=== PATIENT | female | born 1945 | race Caucasian/White ===

== ENCOUNTER 2019-08-24 06:25 | Day surgery (SDC) | payer MEDICARE, OTHER ==
[~2019-08-24] VITALS: Ht 154.9 cm; Wt 84.4 kg
[~2019-08-24 06:25] MED LIST: ASPIRIN EC81 MG PO; CALCIUM500 M1 PO; CENTRUM SILVER1 EAC4 PO; LEVOTHYROXINE75 MCG PO; LOSARTAN POTASS50 MG PO; METFORMIN HCL1000 MG PO; METOPROLOL SUC100 MG PO; OMEPRAZOLE20 MG PO; PAROXETINE HCL20 MG PO; PREVACID15 MG PO; SIMVASTATIN20 MG PO; VITAMIN B122500 MCG PO
--- NOTE | 2019-08-24 08:21 | NUR ---
08/24/19 0821 Sheets,Ariela 0805 PT ARRIVED TO PACU WITH ORAL AIRWAY IN PLACE, VSS. PT ON 6L VIA NC AND PT NONAROUSABLE. RESP EVEN AND UNLABORED BUT SHALLOW. 0812 O2 SAT DECREASED TO 88%, PT WOKE TO TACTILE STIMULI AND ORAL AIRWAY REMOVED. RN ENCOURAGES DEEP BREATHING AND IS REORIENTED TO PACU. 0815 PT WAKES AND ASKED QUESTIONS, RN ANSWERS QUESTIONS AND PT FALLS BACK TO SLEEP. 0818 PT WAKES AND IS TALKING TO RN, PT EDUCATION GIVEN ON DEEP BREATHING. 0819 O2 DECREASED TO 3L, O2 SAT 98%.
--- NOTE | 2019-08-24 08:23 | NUR ---
PT ALERT, ORIENTED AND HERE FOR ROUTINE SCOPE. PT MENTIONED THAT SHE HAS FAMILY HISTORY WITH COLON ISSUES, AND EXPRESSED FRUSTRATION WITH FAMILY THAT REFUSE TO FOLLOW HER EXAMPLE. PT IS PLEASANT, ANSWERED ALL QUESTONS. GAVE BLESSING
--- NOTE | 2019-08-24 10:15 | OR ---
[facility] [address], [place] [address] Signed DATE OF OPERATION: 08/24/2019 SURGEON: Delano Lu MD PREOPERATIVE DIAGNOSES: 1. Maternal grandfather with colon cancer in his 50s. 2. Mother with colon cancer in her 80s. 3. Personal history of colonic polyps in 2013. POSTOPERATIVE DIAGNOSES: 1. A 5 mm polyp in cecum. 2. A 12 mm sessile polyp in mid right colon (snare/tattoo). 3. A 5 mm polyp at 10 cm. 4. Minimal to moderate internal hemorrhoids with skin tags. PROCEDURES: Colonoscopy, snare polypectomy, hot biopsy and injection of tattoo. ESTIMATED BLOOD LOSS: None. INDICATIONS: Sarah is a 74-year-old female, who comes for a followup colonoscopy. Her maternal grandfather had colon cancer in his 50s. Her mother had colon cancer in the 80s and at age 84 from the colon cancer. Sarah had several adenomas polyps removed in 2013. She and her are retired and they travel back and forth to [place] in the winter. She has finally made our way back for followup colonoscopy. I reminded her that she should stay on the 5-year plan. She has no lower GI complaints. In addition, we were not able to get her asleep with our Versed and fentanyl back in 2013. She also has a very wide short heavy neck and a heavy jaw line. Consequently, we had an anesthesia provider help us in 2013 and we made those arrangements on this occasion as well. It proved to be a ross decision. She required quite a bit of propofol to get through the sigmoid colon. I had reviewed the nature of colonoscopy with Sarah. She understands the nature of the test along with the risks including, but not limited to gas bloating, crampy abdominal pain, bleeding, perforation requiring surgery, and missed diagnosis. She had expressed understanding and wished to proceed. DESCRIPTION OF PROCEDURE: Sarah was taken into our endoscopy suite and placed in the left lateral decubitus position. She was given IV sedation with propofol per our nurse television program director. A digital Electronically Signed By: DELANO LU MD 08/24/19 1015 PATIENT NAME: SARAH BANERJEE OPERATIVE REPORT DATE OF : 47 REPORT #: [id number] PHYSICIAN: DELANO LU MD PCP: NAGELY ALFONSO REPORT IS CONFIDENTIAL AND NOT TO BE RELEASED WITHOUT AUTHORIZATION [facility] [address], [place] [address] Signed rectal exam was performed and this was unremarkable. The adult colonoscope was introduced and advanced under direct visualization of camera. She has a moderately difficult sigmoid colon. It took moderate pressure to get the scope through. Fortunately, her prep was good. Even then the scope was dragging in the sigmoid colon throughout her entire procedure. We admitted around to the cecum with additional propofol and abdominal compression. We could easily see the appendiceal orifice and the ileocecal valve. She had a polyp in the base of the cecum, easily removed with the help of a hot biopsy forceps. The scope was slowly withdrawn. She has a multilobulated sessile polyp in the mid right colon. We removed that with two bites of the snare and a couple bites of the hot biopsy forceps. We then injected a tattoo along that area to gokul its location. The scope was withdrawn further and we found a polyp in the rectum at 10 cm. It was easily removed with a hot biopsy forceps. There was no diverticulosis that we could see. Upon retroflexion of scope, she does have minimal to moderate internal hemorrhoids along with associated skin tags. After this, the gas was suctioned out and the colonoscope removed. Sarah tolerated the procedure quite well. RECOMMENDATIONS: I will see Sarah back in my office in 7 to 14 days to review her pathology results. She needs to stay on the 5-year rotation at a minimum. She will always need propofol for her endoscopies. MD ENMA Tom/SURINDERL /[id number] cc: MD Angely Tom PA Copies: DELANO LU MD, LINDA PA ~ Electronically Signed By: DELANO LU MD 08/24/19 1015 PATIENT NAME: SARAH BANERJEE JOSE M OPERATIVE REPORT DATE OF : 47 REPORT #: [id number] PHYSICIAN: DELANO LU MD PCP: ANGELY ALFOSNO REPORT IS CONFIDENTIAL AND NOT TO BE RELEASED WITHOUT AUTHORIZATION
--- NOTE | 2019-08-27 13:58 | PATH ---
[facility] [address], [place] [address] Signed SPECIMEN(S): A COLON POLYP AT 10 CM SPECIMEN(S): B MID RIGHT COLON POLYP SPECIMEN(S): C CECAL POLYP SPECIMEN SOURCE: A. COLON POLYP AT 10 CM B. MID RIGHT COLON POLYP C. CECAL POLYP CLINICAL HISTORY: Colon and rectal polyps, internal hemorrhoids. MICROSCOPIC DESCRIPTION: Histologic sections of all submitted blocks are examined by light microscopy. These findings, together with the gross examination, support the pathologic diagnosis. FINAL PATHOLOGIC DIAGNOSIS: A. Colon polyp at 10 cm: - Tubular adenoma (one fragment). B. Mid right colon polyp: - Tubular adenoma (multiple fragments). C. Cecal polyp: - Tubular adenoma (two fragments). JVR:[facility]:C2NR GROSS DESCRIPTION: Three specimens are received in three containers, labeled "CH." A. The specimen, labeled "CH, 1," and designated on the requisition "colon polyp at 10 cm," is received in formalin and consists of one sheridan soft tissue polypoid fragment that measures 0.3 cm in greatest dimension. The specimen is entirely submitted in cassette (A1). B. The specimen, labeled "CH, 2," and designated on the requisition "mid right colon polyp," is received in formalin and consists of multiple sheridan soft tissue polypoid fragments that measure 2.0 x 1.6 x 0.6 cm in aggregate. The specimen is filtered and entirely submitted in cassette (B1). C. The specimen, labeled "CH, 3," and designated on the requisition "cecal polyp," is received in formalin and consists of two sheridan soft tissue polypoid fragments that measure 0.3 cm in greatest dimension. The specimen is entirely submitted in cassette (C1). AT (under the direct supervision of a pathologist) PATIENT NAME: MIKE BANERJEE PATHOLOGY DATE OF : 47 REPORT #: [id number] PHYSICIAN: YUAN PATHOLOGY PCP: KARYNA ALFONSO REPORT IS CONFIDENTIAL AND NOT TO BE RELEASED WITHOUT AUTHORIZATION [facility] [address], [place] [address] Signed The Gross Description was prepared using a voice recognition system. The report was reviewed for accuracy; however, sound-alike word errors, addition and/or deletions may occur. If there is any question about this report, please contact Client Services. PERFORMING LABORATORY: The technical component was performed by [employer] [employer], [address] [place] [address] (Qa Auditor: Bell Wilson MD; CLIA# [id number]). Professional interpretation [place] [address] (Qa Auditor: Agus Dodson M.D.). Diagnostician: Agus Dodson MD Pathologist Electronically Signed 08/27/2019 Copies: ~ PATIENT NAME: MIKE BANERJEE PATHOLOGY DATE OF : 47 REPORT #: [id number] PHYSICIAN: YUAN TAVARES PCP: KARYNA ALFONSO REPORT IS CONFIDENTIAL AND NOT TO BE RELEASED WITHOUT AUTHORIZATION
== END 2019-08-24 08:49 | disposition home or self-care (01) ==
LOC: DS 06:25 → OPS 06:25 → DS 07:45 → OPS 07:45
PROVIDERS: Colon & Rectal Surgery
PROC: 0DBP8ZZ Excision of Rectum, Via Natural or Artificial Opening Endoscopic (ICD-10-PCS; 2019-08-24)
PROC: 0DBH8ZZ Excision of Cecum, Via Natural or Artificial Opening Endoscopic (ICD-10-PCS; 2019-08-24)
PROC: 0DBK8ZZ Excision of Ascending Colon, Via Natural or Artificial Opening Endoscopic (ICD-10-PCS; principal; 2019-08-24 06:45)
DX: Z12.11 Encounter for screening for malignant neoplasm of colon (principal); D12.0 Benign neoplasm of cecum; D12.2 Benign neoplasm of ascending colon; D12.8 Benign neoplasm of rectum; K64.8 Other hemorrhoids; K64.4 Residual hemorrhoidal skin tags; I10 Essential (primary) hypertension; E78.5 Hyperlipidemia, unspecified; E11.9 Type 2 diabetes mellitus without complications; E03.9 Hypothyroidism, unspecified; F32.9 Major depressive disorder, single episode, unspecified; F41.9 Anxiety disorder, unspecified; Z80.0 Family history of malignant neoplasm of digestive organs; Z86.010 Personal history of colon polyps; Z79.82 Long term (current) use of aspirin; Z79.84 Long term (current) use of oral hypoglycemic drugs; Z79.899 Other long term (current) drug therapy
CPT/HCPCS: J2370; J2704

== ENCOUNTER 2022-09-15 06:50 | Day surgery (SDC) | payer MEDICARE, OTHER ==
[2022-09-13 11:42] VITALS: BP 141/78
[~2022-09-15] VITALS: Ht 154.9 cm; Wt 81.8 kg
[2022-09-15 07:22] VITALS: BP 126/77
[2022-09-15 09:38] VITALS: BP 132/73
--- NOTE | 2022-09-15 09:41 | NUR ---
09/15/22 0941 Yoly Springer- 0839 PT ARRIVED TO PACU, LEFT LATERAL POSITION, RESPONSIVE TO VOICE. NSR ON MONITOR, O2 IN PLACE. ABD SOFT, DENIES PAIN, AND NAUSEA. 09- PT MOVED TO ROOM AIR AT TIME, MAINTAINING SATS AT 95%. 909- PT AWAKE, HEAD OF BED ELEVATED, DENIES PAIN AND NAUSEA. PT DECLINES FLUIDS AT THIS TIME. 926- PT ABLE TO STAND AT BEDSIDE, NO DIZZINESS. PT TO GET DRESSED AND RIDE CALLED.
--- NOTE | 2022-09-15 09:47 | OR ---
[facility] [address], [place] [address] Signed DATE OF OPERATION: 09/15/2022 SURGEON: Delano Lu MD PREOPERATIVE DIAGNOSES: 1. Maternal grandfather with colon cancer. 2. Mother with colon cancer, age 80. 3. Personal history of colonic polyps, age 68. 4. Chronic diarrhea. 5. Nocturnal fecal leakage. 6. Tattoo mid right colon. 7. Internal hemorrhoids with skin tags. POSTOPERATIVE DIAGNOSES: 1. Tortuous angulated sigmoid colon. 2. Moderate internal hemorrhoids with skin tags. 3. Tattoo, mid right colon. PROCEDURE: Colonoscopy without biopsy. ESTIMATED BLOOD LOSS: None. INDICATIONS: Sarah is a 77-year-old female asked to see me for a followup colonoscopy. We know her maternal grandfather had colon cancer. Her mother had colon cancer at age 80. She from the colon cancer at age 84. Sarah has had multiple colonic polyps removed starting at age 68. She is known to have chronic diarrhea. More recently, she has had some nocturnal leakage of stool for about one time a month. We have left a tattoo in her mid right colon. We know she has internal hemorrhoids with skin tags. In the office, I had given her a pamphlet on colonoscopy. We had reviewed that together in detail. She understands the nature of the test. There is risk including, but not limited to gas bloating, crampy abdominal pain, bleeding, perforation requiring surgery, and missed diagnosis. We also reviewed the need for monitored anesthesia care given her obesity, obstructive sleep apnea, diabetes, and so forth. She had expressed understanding and wished to proceed. PROCEDURE NOTE: Sarah was taken into the endoscopy suite and placed in the left lateral decubitus Electronically Signed By: DELANO LU MD 09/15/22 0947 PATIENT NAME: SARAH BANERJEE OPERATIVE REPORT DATE OF : 47 REPORT #: [id number] PHYSICIAN: DELANO LU MD PCP: KARYNA ALFONSO REPORT IS CONFIDENTIAL AND NOT TO BE RELEASED WITHOUT AUTHORIZATION [facility] [address], [place] [address] Signed position. She was given monitored anesthesia care with propofol infusion per our nurse maintenance mechanic 2nd shift. A digital rectal exam was performed and this was unremarkable. There were no external hemorrhoids. She has good sphincter tone. There were no masses. The adult colonoscope was introduced and advanced under direct visualization of the camera. Her sigmoid colon was quite difficult on this occasion. It is very tortuous and angulated in the midportion. We can see she has had a previous hysterectomy. Once we got through this area, the scope continued to drag in the sigmoid colon. It took extra propofol and abdominal compression in order to get the scope into the cecum itself. Unfortunately, her prep was quite excellent. We could easily see the appendiceal orifice and the ileocecal valve. We had taken pictures throughout for photodocumentation. The scope was then slowly withdrawn. We could see the tattoo in the mid right colon. We could see previous polypectomy sites. There were no polyps on this occasion. Once in the rectum, the scope was retroflexed and she does have moderate internal hemorrhoids with associated skin tags. After this, the gas was suctioned out and the colonoscope removed. RECOMMENDATIONS: Sarah can return in 5 years for repeat colonoscopy. She will always need monitored anesthesia care. Delano Lu MD [facility]/MODL /[id number] cc: OK Patterson MD Copies: KARYNA ALFONSO ANDREW L MD ~ Electronically Signed By: DELANO LU MD 09/15/22 0947 PATIENT NAME: SARAH BANERJEE JOSE M OPERATIVE REPORT DATE OF : 47 REPORT #: [id number] PHYSICIAN: DELANO LU MD PCP: KARYNA ALFONSO REPORT IS CONFIDENTIAL AND NOT TO BE RELEASED WITHOUT AUTHORIZATION
--- NOTE | 2022-09-15 12:55 | NUR ---
PT EXPRESSED COMFORT WITH PROCEDURE. DENIED NEEDS. PRAYED.
--- NOTE | 2022-09-17 06:15 | EKG ---
[facility] [address] [facility] [place], [place] [address] Signed Sinus bradycardia Otherwise normal ECG When compared with ECG of 20-AUG-2019 10:35, No significant change was found Confirmed by LAMONTE UMANA MD ([id number]) on 09/17/2022 6:15:35 AM Electronically Signed By: LAMONTE UMANA 09/17/22 0615 PATIENT NAME: MIKE BANERJEE JOSE M Electrocardiogram DATE OF : 47 PHYSICIAN: LAMONTE UMANA REPORT #: [id number] REPORT IS CONFIDENTIAL AND NOT TO BE RELEASED WITHOUT AUTHORIZATION
== END 2022-09-15 09:35 | disposition home or self-care (01) ==
LOC: OPS 06:50 → DS 06:50 → OPS 08:15 → DS 09:45
PROVIDERS: ATTEND Colon & Rectal Surgery
PROC: 0DJD8ZZ Inspection of Lower Intestinal Tract, Via Natural or Artificial Opening Endoscopic (ICD-10-PCS; principal; 2022-09-15 08:15)
DX: R15.2 Fecal urgency (principal); R15.9 Full incontinence of feces; K52.9 Noninfective gastroenteritis and colitis, unspecified; K63.89 Other specified diseases of intestine; K64.8 Other hemorrhoids; K64.4 Residual hemorrhoidal skin tags; I10 Essential (primary) hypertension; E66.9 Obesity, unspecified; E11.9 Type 2 diabetes mellitus without complications; G47.33 Obstructive sleep apnea (adult) (pediatric); K64.0 First degree hemorrhoids; F10.99 Alcohol use, unspecified with unspecified alcohol-induced disorder; Z80.0 Family history of malignant neoplasm of digestive organs; Z86.010 Personal history of colon polyps
CPT/HCPCS: 00811; 93005; 93010; J2704; J7121